=== PATIENT | female | born 1970 | race Caucasian/White ===

== ENCOUNTER 2025-04-08 14:08 | Emergency (ER) | payer OTHER ==
[~2025-04-08] VITALS: Ht 170.2 cm; Wt 90.9 kg
[2025-04-08] MEDS ORDERED: INSNPH SQ (14:27)
[2025-04-08 14:28] VITALS: TEMP 99.1
[2025-04-08 14:41] LABS: GLUCOMETER DEV NAME(LOC) ER.7; GLUCOSE,POINT OF CARE 94 MG/DL (70-110)
[2025-04-08 15:00] LABS: PLATELET COUNT (AUTO) 388 K/uL (150-450); RED BLOOD CELL COUNT(AUTO) 4.51 MIL/uL (4.00-5.20); RED CELL DISTRIBUTION WIDTH 15.8 % (11.5-14.5); WHITE BLOOD COUNT (AUTO) 11.3 K/uL (4.5-11.0)
[2025-04-08 15:05] LABS: CALCIUM, TOTAL 9.4 mg/dL (8.8-10.5); CREATININE 0.69 mg/dL (0.60-1.30); GLOMERULAR FILTR. RATE CALC > 60 mL/min (>60); GLUCOSE,RANDOM 93 mg/dL (70-110); SODIUM SERUM 139 mmol/L (136-145); UREA NITROGEN, BLOOD 15 mg/dL (7-18)
[2025-04-08 15:15] LABS: TROPONIN I-HIGH SENSITIVITY Less Than 4 ng/L (<51)
[2025-04-08] MEDS: SODIUM CHLORIDE 0.9% 1,000 ML IV ONE (17:30)
[2025-04-08] MEDS: METOCLOPRAMIDE HCL 5 MG/ML 2 ML VIAL IVP ONE (17:31)
[2025-04-08 17:37] VITALS: BP 132/78; PULSE 85; RESP 18; O2SAT 98
[2025-04-08] MEDS ORDERED: IOHEXOL 350 MG/ML 100 ML VIAL ONE (17:56)
[2025-04-08] MEDS ORDERED: 0.9% SODIUM CHLORIDE 10 ML SYRINGE IVP ONE (17:56)
[2025-04-08] MEDS ORDERED: SODIUM CHLORIDE 0.9% 100 ML ONE (17:57)
[2025-04-08] MEDS: MORPHINE SULFATE 2 MG/ML SYRINGE IVP ONE (18:42)
== END 2025-04-08 21:32 | disposition left against medical advice (07) ==
LOC: EMS 14:08
DX: R10.9 Unspecified abdominal pain (principal); R11.2 Nausea with vomiting, unspecified; R19.7 Diarrhea, unspecified
CPT/HCPCS: 74177; 80048; 82962; 83690; 84484; 85025; 36415; 93005; Q9967; J2765; J2270; J7030; J7050; 96361; 96374; 96375; 99285